=== PATIENT | male | born 1950 | race Caucasian/White ===

== ENCOUNTER → 2019-01-14 | Outpatient (CLI) | payer OTHER ==
--- NOTE | 2019-01-14 17:13 | CARDNUC ---
[place] [address] CARDIAC NUCLEAR IMAGING REPORT Name: NICHOLE RUELAS Room: [facility]#: [id number] Admission: 01/14/19 Attend Phys: Brenda Lopez DO Discharge: Date of : 52 Date of Service: 01/14/19 1713 Report #: [id number] THIS REPORT FOR: //name// APPROVED REPORT Study performed: 01/14/2019 09:29:35 Exam: Nuclear Stress Test Indication: Chest pain Patient Location: Out-Patient Stress Tech: Joseline Lala Stress Nurse: Bettina Castro RN Ht: 6 ft 4 in Wt: 220 lbs BSA: 2.31 m2 BMI: 26.77 Medical History Medical History: hyperlipidemia, wagenars vasculitis Medications: simvastatin Allergies: atorvastatin Cardiac Risk Factors: Age, Hyperlipidemia Previous Cardiac Procedures: none Exercise History: Physically active Stress Test Details Stress Test: Exercise stress testing was performed using a Devante protocol. HR Resting HR: 66 bpm Max Heart Rate (APMHR): 153 bpm Max HR Achieved: 163 bpm Target HR (85% APMHR): 130 bpm % of APMHR: 106 Recovery HR: 76 bpm BP Resting BP: 148/78 mmHg Max BP: 248/104 mmHg ECG Resting ECG: Sinus Rhythm, RBBB Stress ECG: Sinus Tachycardia, RBBB ST Change: None Arrhythmia: None Recovery ECG: Sinus Rhythm, RBBB Recovery ST Change: None Recovery Arrhythmia: [place] [address] CARDIAC NUCLEAR IMAGING REPORT Name: NICHOLE RUELAS Room: [facility]#: [id number] Admission: 01/14/19 Attend Phys: Brenda Lopez DO Discharge: Date of : 52 Date of Service: 01/14/19 1713 Report #: [id number] Clinical Reason for Termination: Dyspnea, Fatigue Exercise duration: 10 min 09 sec Exercise capacity: 12.02 METs Overall Exercise Capacity for Age: Superior Functional Aerobic Impairment 107% The patient tolerated standard Devante protocol exercise without significant cardiac symptoms. Stress ECG Conclusion The baseline 12-lead EKG shows sinus rhythm without significant ST or T wave abnormality. EKGs obtained during and post exercise showed sinus rhythm and sinus tachycardia without significant ST or T wave changes when compared to baseline. There were no significant stress-induced arrhythmias. NM EXAM: Myocardial Perfusion REST/STRESS Resting Data Rest SPECT myocardial perfusion imaging was performed in supine position 30 minutes following the intravenous injection of 11.4 mCi of Tc-99m Sestamibi. Time of rest injection: 8:15 The images were gated to evaluate regional wall motion and calculate left ventricular ejection fraction. Administration Route: IV Administration Site: Left AC Exercise Stress At peak stress, the patient was injected intravenously with 31.0mCi of Tc-99m Sestamibi. Time of stress injection: 09:40 Administration Route: IV Administration Site: Left AC Heart Rate at time of stress injection: 137 bpm. Patient continued to exercise for 3 minute(s). Gated Stress SPECT was performed 45 minutes after stress injection. The images were gated to evaluate regional wall motion and calculate left ventricular ejection fraction. Prone imaging was performed. Study Quality Study: Good Artifact: Mild [place] [address] CARDIAC NUCLEAR IMAGING REPORT Name: NICHOLE RUELAS [id number] Admission: 01/14/19 Attend Phys: Brenda Lopez DO Discharge: Date of : 52 Date of Service: 01/14/19 1713 Report #: [id number] Study Data At rest, the left ventricular ejection fraction was 67%.. Post stress, the left ventricular ejection was 65%.. TID = 0.78. Perfusion Perfusion images obtained in the supine position at rest and post stress show a moderate region of photopenia involving the inferior wall that resolves completely with post stress prone imaging suggesting diaphragmatic attenuation artifact. No other significant fixed or reversible defects were identified. Wall Motion Normal left ventricular wall motion. Nuclear Conclusion ECG Findings: negative for ischemia Clinical Findings: negative for ischemia Nuclear Findings: negative for ischemia Exercise Capacity: normal Left Ventricular Function: normal Risk Study: low Myocardial perfusion images show no defect to suggest infarct or ischemia. Left ventricular systolic function appears normal on gated studies. This is a low risk study. <Conclusion> The baseline 12-lead EKG shows sinus rhythm without significant ST or T wave abnormality. EKGs obtained during and post exercise showed sinus rhythm and sinus tachycardia without significant ST or T wave changes when compared to baseline. There were no significant stress-induced arrhythmias. <ELECTRONICALLY SIGNED> By: Cristóbal Phillips MD, [facility] 01/14/19 171 12 12 Cristóbal Phillips MD, FACC /INF
== END ==
LOC: M.NUC 12-27 08:33
DX: R07.9 Chest pain, unspecified (principal); E78.5 Hyperlipidemia, unspecified